=== PATIENT | female | born 1965 | race Caucasian/White ===

== ENCOUNTER → 2016-12-18 | Outpatient (CLI) | payer BC ==
[~2016-12-18] MED LIST: ALBU1AER9 INH; CLON0.5T3 PO; CYCL0.05 OPB; FLUO0.1S12 OPB; FLVHFA110 INH; INSDGI SC; INSPMPNVLG; LAMO200T PO; LEVO112T2 PO; LEVO125T72 PO; PANT40TA PO; POLY335019 PO; TRAZ-119 PO
--- NOTE | 2016-12-18 13:08 | MAMMOGRAPHY REPORT ---
BILATERAL DIGITAL SCREENING MAMMOGRAM TOMOSYNTHESIS WITH CAD: 12/18/2016 CLINICAL HISTORY: Routine screening. Patient has no complaints. TECHNIQUE: Breast tomosynthesis in addition to standard 2D mammography was performed. Current study was also evaluated with a Computer Aided Detection (CAD) system. COMPARISON: Comparison is made to exams dated: 12/03/2014 mammogram, 12/14/2015 mammogram, 09/22/2013 m ammogram, 05/30/2012 mammogram, 05/25/2011 mammogram, and 10/06/2010 mammogram - [facility]. BREAST COMPOSITION: The tissue of both breasts is extremely dense, which lowers the sensitivity of mammography. FINDINGS: There are grouped microcalcifications in the 6:00 and superior right breast, for which ad ditional spot magnification views are recommended. A 12 mm focal asymmetry in the 12:00 to 1:00 mid dle one third of the left breast warrants additional spot compression tomosynthesis views and possib ly ultrasound. No other suspicious mass, architectural distortion or cluster of microcalcifications is seen bilater ally. IMPRESSION: ACR BI-RADS CATEGORY 0: INCOMPLETE EVALUATION: NEED ADDITIONAL IMAGING EVALUATION The right breast microcalcifications and left breast focal asymmetry need additional imaging evaluat ion. The patient will be called to schedule an appointment. Approximately 10% of breast cancers are not detected with mammography. A negative mammographic repor t should not delay biopsy if a clinically suggestive mass is present. Florencia Friend M.D. ay/:12/18/2016 08:19:47 Glass Tube Bender: Suyapa Callahan, [facility] letter sent: Addl Imaging 0 BI-RADS Code: ACR BI-RADS Category 0: Incomplete Evaluation: Need Additional Imaging Evaluation
== END | disposition home or self-care (01) ==
LOC: C.MAMM 07:27
PROVIDERS: ATTEND Obstetrics & Gynecology
DX: Z12.31 Encounter for screening mammogram for malignant neoplasm of breast (principal); R92.0 Mammographic microcalcification found on diagnostic imaging of breast; N64.9 Disorder of breast, unspecified

== ENCOUNTER → 2016-12-26 | Outpatient (CLI) | payer BC ==
--- NOTE | 2016-12-26 13:17 | MAMMOGRAPHY REPORT ---
BILATERAL DIGITAL DIAGNOSTIC MAMMOGRAM TOMOSYNTHESIS AND TARGETED LEFT ULTRASOUND: 12/26/2016 CLINICAL HISTORY: 51-year-old woman called back from screening mammography for right breast microcal cifications and left breast focal asymmetry. TECHNIQUE: Spot magnification right CC, ML and spot compression tomosynthesis left CC and MLO views were obtained. COMPARISON: Comparison is made to exams dated: 12/18/2016 mammogram, 12/14/2015 mammogram, 12/03/2014 m ammogram, 09/22/2013 mammogram, 05/30/2012 mammogram, and 05/25/2011 mammogram - [facility]. BREAST COMPOSITION: The tissue of both breasts is extremely dense, which lowers the sensitivity of mammography. FINDINGS: Spot magnification views of the right breast demonstrate microcalcifications both superior ly and inferiorly within the breast. There are regional round and somewhat coarse calcifications th roughout the superior breast, and a grouping of round microcalcifications in the 6:00 posterior righ t breast measuring 9 mm. When comparing back to prior available mammograms, microcalcifications hav e been present in these locations dating back to at least 05/25/2011, although a few more are identi fied in the superior and 6:00 axes. Although the microcalcifications most likely represent benign f ibrocystic change or benign calcifications, given the slight interval change, repeat attention at fo llow-up is recommended in 6 months. No obvious new mass or focal area of architectural distortion i s identified in the right breast. Spot compression tomosynthesis views of the left breast demonstrate a vague 9 x 13 mm asymmetry in t he superior middle one third of the breast in the MLO projection. There are a few scattered benign- appearing microcalcifications. No focal area of architectural distortion. Further evaluation with ultrasound was performed. Real-time high-resolution ultrasound was performed in the left breast. In the 12:00 periareolar axi s, there is an oval parallel circumscribed nearly anechoic cystic appearing mass with posterior acou stic enhancement, measuring 8.8 x 6.7 x 9.0 mm. This may correlate with the mammographic asymmetry and is benign. There is a lobulated hypoechoic and anechoic cystic appearing mass in the 10:00 left breast, 1 cm from the nipple, measuring 4.7 x 3.3 x 4.6 mm. Another mixed hypoechoic and anechoic cystic appearing mass is identified in the 11:00 periareolar left breast measuring 3.3 x 2.9 x 4.3 m m. No suspicious solid mass is identified throughout the left breast on ultrasound. IMPRESSION: ACR-BI-RADS CATEGORY 3: PROBABLY BENIGN, TARGETED ULTRASOUND ACR-BI-RADS CATEGORY 3: [place] OBABLY BENIGN 1. A short interval follow-up diagnostic right mammogram is recommended to ensure stability of shona onal and grouped microcalcifications in the superior and 6:00 axes of the right breast. 2. A short interval follow-up diagnostic left mammogram and targeted left breast ultrasound is brit[place] mmended to ensure stability of probable complicated cysts in the 10:00, 11:00 and 12:00 axes. An as ymmetry in the superior left breast seen mammographically is thought to correlate with the dominant oval parallel cystic-appearing mass in the 12:00 axis. These results and recommendations were discussed with the patient at the time of the exam. She tent atively scheduled a follow-up appointment prior to leaving our department. Approximately 10% of breast cancers are not detected with mammography. A negative mammographic repor t should not delay biopsy if a clinically suggestive mass is present. Florencia Friend M.D. ay/:12/26/2016 09:19:41 Custom Bow Maker: Suyapa Callahan, [facility] letter sent: Follow Up Recommended 3 BI-RADS Code: ACR-BI-RADS Category 3: Probably Benign Ultrasound BI-RADS: ACR-BI-RADS Category 3: P robably Benign
== END | disposition home or self-care (01) ==
LOC: C.MAMM 07:59
PROVIDERS: ATTEND Obstetrics & Gynecology
DX: R92.0 Mammographic microcalcification found on diagnostic imaging of breast (principal); N64.89 Other specified disorders of breast; N63 Unspecified lump in breast

== ENCOUNTER → 2017-02-21 | Outpatient (CLI) | payer BC ==
[~2017-02-21] MED LIST changes: -TRAZ-119 PO; +TRAZ1TAB16 PO
--- NOTE | 2017-02-21 09:39 | DIAGNOSTIC IMAGING REPORT ---
CHEST 2 VIEWS ROUTINE CLINICAL HISTORY: R07.81 dyspnea COMPARISON STUDY: No previous studies for comparison. FINDINGS: The bones soft tissues and hemidiaphragms are normal. The cardiomediastinal silhouette is normal. The lungs are clear. The pulmonary vasculature is normal. IMPRESSION: Negative chest. Electronically signed by: Grover Sauceda M.D. 02/21/2017 9:37 AM Dictated Date/Time: 02/21/2017 9:37 AM
--- NOTE | 2017-02-21 09:40 | DIAGNOSTIC IMAGING REPORT ---
RIGHT RIBS UNILATERAL MIN 2 VIEWS CLINICAL HISTORY: R07.81 Right pain COMPARISON STUDY: None FINDINGS: Negative study IMPRESSION: Negative study Electronically signed by: Grover Sauceda M.D. 02/21/2017 9:39 AM Dictated Date/Time: 02/21/2017 9:38 AM
== END | disposition home or self-care (01) ==
LOC: C.RAD1850 09:18
PROVIDERS: ATTEND Family Medicine
DX: R07.81 Pleurodynia (principal)

== ENCOUNTER → 2017-03-27 | Outpatient (CLI) | payer BC ==
--- NOTE | 2017-03-27 09:57 | DIAGNOSTIC IMAGING REPORT ---
RIGHT FIFTH TOE 3 VIEWS HISTORY: Right fifth toe pain. COMPARISON: None. 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 Nondisplaced fracture at the base of the distal phalanx of the fifth toe. This extends to the interphalangeal joint. Soft tissue swelling. No dislocation. No radiopaque foreign bodies. IMPRESSION: Nondisplaced fracture within the distal phalanx of the right fifth toe. Electronically signed by: Greg Frank M.D. 03/27/2017 9:55 AM Dictated Date/Time: 03/27/2017 9:54 AM
== END | disposition home or self-care (01) ==
LOC: C.RAD1850 09:41
PROVIDERS: ATTEND Family Medicine
DX: M79.676 Pain in unspecified toe(s) (principal); S92.534A Nondisplaced fracture of distal phalanx of right lesser toe(s), initial encounter for closed fracture; X58.XXXA Exposure to other specified factors, initial encounter

== ENCOUNTER → 2017-05-02 | Outpatient (CLI) | payer BC ==
--- NOTE | 2017-05-02 14:13 | DIAGNOSTIC IMAGING REPORT ---
RIGHT TOE(S) MIN 2 VIEWS CLINICAL HISTORY: FRACTURE OF TOE Right trauma. Pain. COMPARISON: None. DISCUSSION: No significant healing of a fracture distal phalanx fifth toe. Alignment remains anatomic. There is no evidence for soft tissue swelling. IMPRESSION: No significant healing of a fracture base distal phalanx great toe The above report was generated using voice recognition software. It may contain grammatical, syntax or spelling errors. Electronically signed by: Grover Sauceda M.D. 05/02/2017 2:11 PM Dictated Date/Time: 05/02/2017 2:08 PM
== END | disposition home or self-care (01) ==
LOC: C.RAD1850 13:28
PROVIDERS: ATTEND Physician Assistant
DX: S92.919A Unspecified fracture of unspecified toe(s), initial encounter for closed fracture (principal); X58.XXXA Exposure to other specified factors, initial encounter

== ENCOUNTER → 2017-05-22 | Outpatient (CLI) | payer BC | END | disposition home or self-care (01) | LOC: C.PAPS 14:03 | PROVIDERS: ATTEND Obstetrics & Gynecology | DX: Z01.419 Encounter for gynecological examination (general) (routine) without abnormal findings (principal) ==

== ENCOUNTER → 2017-05-22 | Outpatient (CLI) | payer BC ==
--- NOTE | 2017-05-22 13:16 | MAMMOGRAPHY REPORT ---
BILATERAL DIGITAL DIAGNOSTIC MAMMOGRAM TOMOSYNTHESIS WITH CAD AND TARGETED LEFT ULTRASOUND: 05/22/2017 CLINICAL HISTORY: Short interval follow-up of right breast calcifications and left breast masses. TECHNIQUE: Breast tomosynthesis in addition to standard 2D mammography was performed. Current study was also evaluated with a Computer Aided Detection (CAD) system. Bilateral CC and MLO 2-D and tomosy nthesis images and spot magnification right cc and ML views were obtained. COMPARISON: Comparison is made to exams dated: 12/26/2016 ultrasound, 12/26/2016 mammogram, 12/18/2016 m ammogram, 12/14/2015 mammogram, 12/03/2014 mammogram, and 09/22/2013 mammogram - [facility]. BREAST COMPOSITION: The tissue of both breasts is extremely dense, which lowers the sensitivity of m ammography. FINDINGS: Spot magnification views of the right breast demonstrate benign-appearing coarse and round calcifications in the right superior and inferior breast. Calcifications are stable on spot magnifi cation views dated 12/26/2016, and in retrospect do not appear significantly changed compared to multi ple prior exams including the 2013 exam when accounting for differences in mammographic technique. T he calcifications are considered benign given the morphology and long-term stability. The remainder of both breasts are stable compared to prior exams, without suspicious masses, calcifications, or are as of architectural distortion noted. The previously seen nodular asymmetry in the left superior jody ast on the MLO view is no longer evident, with normal fibroglandular tissue seen in this region on th e tomosynthesis images. Other scattered benign-appearing calcifications are not significantly change d. Targeted ultrasound was performed of the area of the previously seen left breast masses. In the left breast at 12:00 periareolar region, again noted is an oval circumscribed nearly anechoic mass which measures 8 x 5 mm, not significantly changed and felt to represent a cyst. This is difficult to visu bianca on today's exam due to shadowing of surrounding dense fibroglandular tissue, and was better see n on the prior exam. In the left breast at 10:00 periareolar region, again noted is a circumscribed anechoic mass with a few thin internal septations, measuring 4 x 3 x 4 mm, also not significantly una nged compared to the December 2016 exam (previously labeled left 11:00 periareolar region) and most compat ible with a cyst cluster. The previously seen mass in the left 10:00, 1 cm from the nipple is no joni dante evident. In the left breast at 12:00, 1 cm from the nipple there is an oval circumscribed anecho ic 6 x 3 x 5 mm mass and an adjacent anechoic circumscribed 3 x 2 mm mass. These are consistent with benign cysts. No suspicious solid masses are evident. IMPRESSION: ACR BI-RADS CATEGORY 2: BENIGN, TARGETED ULTRASOUND ACR BI-RADS CATEGORY 2: BENIGN 1. Benign-appearing calcifications in the right inferior and superior breast are stable compared to multiple prior exams and considered benign given the morphology and long-term stability. 2. Small circumscribed left breast masses seen on ultrasound in the left 11 to 12:00 breast are stab le and consistent with benign cysts. There is no mammographic or targeted sonographic evidence of malignancy. A 1 year screening mammogram is recommended. The patient has been verbally notified of the results. Approximately 10% of breast cancers are not detected with mammography. A negative mammographic report should not delay biopsy if a clinically suggestive mass is present. Manju Hough M.D. ah/:05/22/2017 08:34:48 [employer]ified Cro[employer] Supervisor: Emy ENGLAND(Mel[place])(Leona), [facility] letter sent: Normal 1/2 BI-RADS Code: ACR BI-RADS Category 2: Benign Ultrasound BI-RADS: ACR BI-RADS Category 2: Benign
== END | disposition home or self-care (01) ==
LOC: C.MAMM 07:52
PROVIDERS: ATTEND Obstetrics & Gynecology
DX: Z09 Encounter for follow-up examination after completed treatment for conditions other than malignant neoplasm (principal)

== ENCOUNTER → 2017-11-28 | Outpatient (CLI) | payer OTHER ==
[~2017-11-28] MED LIST changes: +TRAZ-119 PO; -TRAZ1TAB16 PO
--- NOTE | 2017-11-28 08:51 | DIAGNOSTIC IMAGING REPORT ---
L SHOULDER MIN 2 VIEWS HISTORY: 52 years-old Female LEFT SHOULDER PAIN acute left shoulder pain COMPARISON: Chest radiograph 02/21/2017 TECHNIQUE: 3 views of the left shoulder FINDINGS: Mild degenerative changes about the AC joint. Glenohumeral joint is unremarkable. No acute fracture or dislocation. Soft tissues, imaged ribs and lung niño appear unremarkable. IMPRESSION: No acute fracture or dislocation. The above report was generated using voice recognition software. It may contain grammatical, syntax or spelling errors. Electronically signed by: Gomez Guthrie M.D. 11/28/2017 8:50 AM Dictated Date/Time: 11/28/2017 8:48 AM
== END | disposition home or self-care (01) ==
LOC: C.RDSM 18:10
PROVIDERS: ATTEND Family Medicine
DX: M25.512 Pain in left shoulder (principal)